=== PATIENT | female | born 1935 | race Caucasian/White ===

== ENCOUNTER 2019-01-25 09:28 | Day surgery (SDC) | payer OTHER ==
--- NOTE | 2019-01-25 09:32 | EKG ---
Test Date: 2019-01-25 Test Time: 09:02:46 Barrel Lathe Operator: MELISSA MEASUREMENT RESULTS: Intervals: Rate: 72 [place]: QRSD: 132 QT: 426 QTc: 466 [place]: P: [place]: QRS: -45 T: 132 INTERPRETIVE STATEMENTS: Atrial fibrillation Left bundle branch block Abnormal ECG No previous ECG available for comparison Electronically Signed On 01-25-19 09:31:17 [employer] ANALYST by Jose Blackman
[2019-01-25 09:39] LABS: Absolute Lymphocytes (CBC) 2.2 K/uL (0.7-4.9); Basophils % 1.2 % (0-1.3); Hematocrit 37.5 % (36.0-45.0); Lymphocytes % 22.2 % (15.3-44.8); MPV 10.1 fL (7.6-11.3); RBC Red Blood Cell Count 4.65 M/uL (3.86-4.86)
[2019-01-25 09:54] LABS: Potassium 3.5 mmol/L (3.5-5.1)
[2019-01-25] MEDS ORDERED: NA CHLORIDE 0.9% 1,000 ML ONE (10:30)
[2019-01-25] MEDS ORDERED: CEFAZOLIN/SWI 1gm 1 GM/10 ML SYR ONE (10:30)
--- NOTE | 2019-01-25 10:44 | RAD REPORT ---
EXAM DESCRIPTION: RAD - Chest Pa And Lat (2 Views) - 01/25/2019 9:25 am CLINICAL HISTORY: preop Chest pain. COMPARISON: No comparisons FINDINGS: The lungs are mildly hyperexpanded compatible with COPD. The heart is moderately enlarged in size with a single lead pacer device present. Old fracture of the left humerus noted. IMPRESSION: Mild COPD.
[2019-01-25] MEDS ORDERED: FENTANYL CITR 100 MCG/2 ML ONE ×2 (11:26→12:20)
[2019-01-25] MEDS ORDERED: LIDOCAINE 2% MPF 5 ML VIAL ONE (11:27)
[2019-01-25] MEDS ORDERED: PROPOFOL 200 MG/20 ML VIAL IV ONE (11:27)
[2019-01-25] MEDS ORDERED: FENTANYL CITR 100 MCG/2 ML IV ONE (12:21)
--- NOTE | 2019-01-25 12:25 | P.BOP ---
Preoperative diagnosis: right lateral leg tender subcutaneous mass Postoperative diagnosis: same Primary procedure: Excisional biopsy of right lateral leg tender subcutaneous mass 5x4cm Estimated blood loss: <10cc Specimen: mass Findings: right lateral leg tender subcutaneous mass Anesthesia: General Complications: None Transferred to: Recovery Room Condition: Good
[2019-01-25 14:05] VITALS: TEMP 97.6; O2SAT 96
[2019-01-25 14:07] VITALS: BP 140/71
--- NOTE | 2019-01-27 20:44 | OP ---
Date of Procedure: 01/25/2019 Surgeon: Gianluca Galvan MD Preoperative Diagnosis: Right lateral leg tender subcutaneous mass. Postoperative Diagnosis: Right lateral leg tender subcutaneous mass. Procedure: Excisional biopsy of right lateral leg tender subcutaneous mass, 5 x 4 cm. Estimated Blood Loss: Less than 10 cc. Findings: Subcutaneous mass. Anesthesia: General plus local. Indications: This is a case of a female, who comes to us with a tender mass in the right lateral leg region. The benefits, alternatives, and risks of excision fully explained, which include, but are n ot limited to infection, bleeding, damage to adjacent structures, anesthesia complication, recurrence , [place], and even . She also understands this may not relieve any symptoms. She might need more t leigh one surgical intervention. She also had venous disease and mild lymphedema in that area in which an incision in that area may be difficult to heal and she understands that, but still the mass is te nder, it is growing, she wants that excised. Description Of Procedure: Patient was brought to the operating room, placed in supine position. The area of concern was marked by me and the patient in the holding room. Once we had the patient in OR , we did a time-out, prepped and draped the right leg in usual sterile fashion. Local anesthetic was applied followed by sharp incision of the skin. This incision was carried down to deep subcutaneous tissue just above the fascia of the muscle. We noticed this mass present. It had discoloration and was porter in nature. Does not seem to be a hematoma. Does not involve the fascia, but involved some of the fatty tissue around it, may be just necrotic fatty tissue, but the mass was clearly there. S o, we removed the mass completely, irrigated the subcutaneous tissue, obtained hemostasis, and then c losed the area with 3-0 chromic and then nylon. Patient tolerated the procedure well. Sponge count and instrument counts were correct. Patient was sent to recovery in stable condition. VICTOR MANUEL/ERIC Voice ID: [id number] Report ID: [id number]
--- NOTE | 2019-01-27 20:44 | DS ---
Date of Discharge: 01/25/2019 Diagnosis: Right lateral leg tender subcutaneous mass. Procedure: Excisional biopsy of right lateral leg tender subcutaneous mass. Disposition: Home. Activity: As tolerated. No heavy lifting. Followup: Follow up in my office in 1 week. Call for appointment at [phone]. Keep area dry for 48 hours, then may shower. FELICITY Voice ID: [id number] Report ID: [id number]
== END 2019-01-25 13:20 | disposition home or self-care (01) ==
LOC: OR 09:28
PROVIDERS: ATTEND Surgery
PROC: 0JBN0ZZ Excision of Right Lower Leg Subcutaneous Tissue and Fascia, Open Approach (ICD-10-PCS; principal; 2019-01-25 12:45)
DX: R22.41 Localized swelling, mass and lump, right lower limb (principal); E11.9 Type 2 diabetes mellitus without complications; I48.91 Unspecified atrial fibrillation; J44.9 Chronic obstructive pulmonary disease, unspecified; E78.00 Pure hypercholesterolemia, unspecified; E78.5 Hyperlipidemia, unspecified; G20 Parkinson's disease; F02.80 Dementia in other diseases classified elsewhere, unspecified severity, without behavioral disturbance, psychotic disturbance, mood disturbance, and anxiety; F32.9 Major depressive disorder, single episode, unspecified; E66.9 Obesity, unspecified; Z68.35 Body mass index [BMI] 35.0-35.9, adult; Z95.0 Presence of cardiac pacemaker; Z79.01 Long term (current) use of anticoagulants; Z88.2 Allergy status to sulfonamides; Z88.3 Allergy status to other anti-infective agents; Z88.6 Allergy status to analgesic agent
CPT/HCPCS: 93005; 85025; 80048; 36415; 82947; 88304; 71046; 11406; J2704; J3010 ×3; J0690; J7030; 88305